=== PATIENT | female | born 1980 | race Caucasian/White ===

== ENCOUNTER → 2016-08-15 | Outpatient (CLI) | payer OTHER ==
[~2016-08-15] MED LIST: PRENTAB26 PO
[2016-08-15 16:26] LABS: HEMATOCRIT 35.2 % (37-47)
[2016-08-15 17:51] LABS: URINE APPEARANCE CLEAR (CLEAR); URINE BILIRUBIN NEG (NEG); URINE COLOR YELLOW; URINE NITRITE NEG (NEG); URINE PH 7.5 (4.5-7.5); URINE SPECIFIC GRAVITY 1.004 (1.000-1.030); UROBILINOGEN NEG (NEG)
[2016-08-15 17:52] LABS: MANUAL MICROSCOPIC REQUIRED? NO; REVIEW REQ? NO
[2016-08-15 18:40] LABS: GTGD 50 Grams
== END | disposition home or self-care (01) ==
LOC: C.LAB1850 15:31
PROVIDERS: ATTEND Obstetrics & Gynecology
DX: O09.03 Supervision of pregnancy with history of infertility, third trimester (principal); Z3A.00 Weeks of gestation of pregnancy not specified

== ENCOUNTER → 2016-08-18 | Outpatient (CLI) | payer OTHER ==
--- NOTE | 2016-08-18 15:01 | DIAGNOSTIC IMAGING REPORT ---
LEFT FOOT MIN 3 VIEWS ROUTINE CLINICAL HISTORY: L FOOT INJURY trauma. Pain. COMPARISON: None. DISCUSSION: The bones and joint spaces appear intact. There is no evidence of fracture, dislocation or bony disease. There is no evidence for soft tissue swelling. IMPRESSION: Negative study. Electronically signed by: Julio C Patel M.D. 08/18/2016 3:00 PM Dictated Date/Time: 08/18/2016 2:59 PM
--- NOTE | 2016-08-18 15:03 | DIAGNOSTIC IMAGING REPORT ---
LEFT ANKLE MIN 3 VIEWS ROUTINE CLINICAL HISTORY: L FOOT INJURY trauma COMPARISON: None. DISCUSSION: Tiny cortical avulsion tip distal fibula. Mild lateral soft tissue edema. All remaining osseous structures are unremarkable. Subtalar joint is intact. IMPRESSION: Tiny cortical avulsion tip distal fibula. Electronically signed by: Julio C Patel M.D. 08/18/2016 3:01 PM Dictated Date/Time: 08/18/2016 3:00 PM
== END | disposition home or self-care (01) ==
LOC: C.RAD 14:34
PROVIDERS: ATTEND Family Medicine
DX: S99.912A Unspecified injury of left ankle, initial encounter (principal); X58.XXXA Exposure to other specified factors, initial encounter

== ENCOUNTER → 2016-10-10 | Outpatient (CLI) | payer OTHER | END | disposition home or self-care (01) | LOC: C.LABSPEC 17:33 | PROVIDERS: ATTEND Obstetrics & Gynecology | DX: O09.03 Supervision of pregnancy with history of infertility, third trimester (principal) ==

== ENCOUNTER 2016-11-05 02:28 | Inpatient (IN) | payer OTHER ==
[~2016-11-05] VITALS: Ht 180.3 cm; Wt 84.1 kg
[2016-11-05] MEDS ORDERED: LACTATED RINGER'S 1000ML 1,000 ML IV SCH (03:15)
[2016-11-05] MEDS ORDERED: LACTATED RINGER'S 1000ML 1,000 ML IV PRN (03:15)
[2016-11-05 03:47] LABS: HEMATOCRIT 37.6 % (37-47); MEAN CELL VOLUME 93.3 fL (80-100); MEAN CORPUSCULAR HEMOGLOBIN 31.3 pg (25-34); MEAN CORPUSCULAR HGB CONC 33.5 g/dl (32-36); MEAN PLATELET VOLUME 10.2 fL (7.4-10.4); PLATELET COUNT 202 K/uL (130-400); RED BLOOD COUNT 4.03 M/uL (4.2-5.4)
[2016-11-05] MEDS ORDERED: PRENTAB26 PO (04:01)
[2016-11-05 04:06] VITALS: Ht 180.3 cm; Wt 84.1 kg
[2016-11-05] MEDS ORDERED: FENTANYL CITRATE INJ 50 MCG/1 ML 2 ML VIAL ONE (04:18)
[2016-11-05] MEDS ORDERED: BUPIVACAINE 0.25% 30 ML VIAL ONE (04:18)
[2016-11-05] MEDS ORDERED: EpHEDrine SULFATE INJ 50 MG/ML AMP ONE (04:18)
[2016-11-05] MEDS ORDERED: FENTANYL 2MCG/ML ROPIV 1.25MG/ML 100ML BAG EPI ONE (04:19)
[2016-11-05] MEDS ORDERED: NALOXONE HCL INJ 1 MG in SODIUM CHLORIDE 0.9% 1000ML 1,000 ML IV PRN (05:41)
[2016-11-05] MEDS ORDERED: LACTATED RINGER'S 1000ML 500 ML IV PRN ×2 (05:41→06:27)
[2016-11-05] MEDS ORDERED: ONDANSETRON INJ 2 MG/ML 2 ML VIAL IV PRN (05:45)
[2016-11-05] MEDS ORDERED: FENTANYL 2MCG/ML ROPIV 1.25MG/ML 100ML BAG EPI PRN (05:45)
[2016-11-05] MEDS ORDERED: PROMETHAZINE HCL INJ 6.25 MG in SODIUM CHLORIDE 0.9% 50ML 50 ML IV PRN (05:45)
[2016-11-05] MEDS ORDERED: NALBUPHINE HCL INJ 10 MG/ML AMP IV PRN (05:45)
[2016-11-05] MEDS ORDERED: EpHEDrine SULFATE INJ 50 MG/ML AMP IV PRN (05:45)
[2016-11-05] MEDS ORDERED: DiphenhydrAMINE HCL 50 MG/ML VIAL IV PRN (05:45)
[2016-11-05] MEDS ORDERED: NALOXONE HCL INJ 0.4 MG/1 ML VIAL/CARP IV PRN (05:45)
[2016-11-05] MEDS ORDERED: OXYTOCIN 30 UNITS/500ML NSS IV PRN ×2 (06:30→10:00)
[2016-11-05] MEDS ORDERED: LANOLIN OINT EXT PRN ×2 (10:00)
[2016-11-05] MEDS ORDERED: HYDROCORTISONE ACETATE 25 MG SUPP PR PRN (10:00)
[2016-11-05] MEDS ORDERED: OXYCODONE/ACETAMINOPHEN 5-325 TAB PO PRN (10:00)
[2016-11-05] MEDS ORDERED: SUPERCREAM 0.870 % 15GM JAR EXT PRN (10:00)
[2016-11-05] MEDS ORDERED: BENZOCAINE 20% AER SPR 82.5 GM CAN EXT PRN (10:00)
[2016-11-05] MEDS: IBUPROFEN 600 MG TAB PO PRN ×3 (11:03→23:41)
--- NOTE | 2016-11-05 11:28 | Anesthesia Procedure Note ---
Anesthesia Epidural Removal Nt Date & Time November 05, 2016 at 11:28 Vital Signs Pain Intensity: 5.0 Notes Mental Status: alert / awake / arousable, participated in evaluation Nausea / Vomiting: adequately controlled Pain: adequately controlled Airway Patency, RR, SpO2: stable & adequate BP & HR: stable & adequate Hydration State: stable & adequate Neuraxial Anesthesia: was administered, sensory block is resolving Anesthetic Complications: no major complications apparent, pt satisfied with anesthetic care Epidural: removed without complications, with tip intact
--- NOTE | 2016-11-05 12:51 | DELIVERY SUMMARY ---
DATE OF OPERATION: 11/05/2016 DELIVERING SURGEON: Dr. Chaves. PRE-DELIVERY DIAGNOSES: 1. 36-year-old at 40 weeks and 4 days. 2. Spontaneous rupture of membranes. 3. Spontaneous labor. POST-DELIVERY DIAGNOSES: Same. ANESTHESIA: Epidural. ESTIMATED BLOOD LOSS: 200 mL. FINDINGS: Viable male with apgars 8 and 9, nuchal cord x1. No perineal laceration. DESCRIPTION OF DELIVERY: The patient had presented overnight in spontaneous labor with spontaneous rupture of membranes at home. She was given and epidural after arrival and walking the hallways. Pitocin was then started for protracted active phase. The patient then progressed to complete and felt pressure and began to push. She then spontaneously vaginally delivered a viable male with apgars 8 and 9 from a left occiput anterior position. Nuchal cord x1 was noted and easily reduced. The head delivered followed by the anterior shoulder followed by the posterior shoulder followed by the body. The baby was placed on mother's abdomen and a spontaneous cry was heard. Delayed cord clamping was performed and the cord was doubly clamped and cut after one minute of life and a segment was retained in the event we needed cord gases. Cord blood was obtained. The placenta was then delivered spontaneously intact with a 3-vessel cord. Meconium was noted in the amniotic fluid at time of delivery which had not been noticed previously during labor. The uterus became firm. Pitocin was given. The uterus and vagina were swept of all clots and debris. The cervix, vagina, and perineum were inspected and no lacerations were noted. The patient and baby tolerated the delivery well. Sponge and instrument counts were correct x2 at the conclusion of the delivery and the patient and baby recovered in the room. I attest to the content of the Intraoperative Record and any orders documented therein. Any exceptio ns are noted below.
[2016-11-05 13:00] VITALS: BP 123/72; PULSE 95
[2016-11-05 16:00] VITALS: BP 120/72; PULSE 82; TEMP 36.5; O2SAT 98
[2016-11-05 20:20] VITALS: BP 131/87; PULSE 71; TEMP 36.4
[2016-11-05] MEDS: DOCUSATE SODIUM 100 MG CAP PO SCH (20:35)
[2016-11-05 23:30] VITALS: BP 123/79; PULSE 62; TEMP 36.7
[2016-11-06 04:35] VITALS: BP 106/70; PULSE 69; TEMP 36.5
[2016-11-06] MEDS: IBUPROFEN 600 MG TAB PO PRN ×3 (06:32→19:27)
--- NOTE | 2016-11-06 07:28 | Progress Note ---
Subjective November 06, 2016. Subjective conversation w/ patient Ambulation: ambulating normally Voiding: no voiding problems Passing Gas: Yes Diet Tolerance: Regular Diet Lochia: Moderate Feeding Type: Breast Feeding Review of Systems Constitutional: No problem reported Respiratory: No problem reported Cardiac: No problem reported Breast: No problem reported Abdomen: No problem reported Female : No problem reported Objective Vital Signs Date Time Temp Pulse Resp B/P Pulse Ox O2 Delivery O2 Flow Rate FiO2 11/06/16 04:35 36.5 69 16 106/70 Room Air 11/05/16 23:30 Room Air 11/05/16 23:30 36.7 62 16 123/79 Room Air 11/05/16 20:20 36.4 71 16 131/87 Room Air 11/05/16 16:40 Room Air 11/05/16 16:00 36.5 82 16 120/72 98 Room Air 11/05/16 13:00 Room Air 11/05/16 13:00 95 18 123/72 Room Air Physical Exam General Appearance: WELL-APPEARING, NO APPARENT DISTRESS Respiratory/Chest: no respiratory distress Cardiovascular: regular rate, rhythm Abdomen: non tender, soft Fundus: Firm Extremities: normal inspection Laboratory Results Last 24 Hours Test 11/06/16 04:44 Assessment and Plan Post- Day#: 1 Continue Routine Care: PPD#1. Doing well. Routine care.
[2016-11-06 07:55] VITALS: BP 121/85; PULSE 66; TEMP 36.7; O2SAT 100
[2016-11-06] MEDS: DOCUSATE SODIUM 100 MG CAP PO SCH ×2 (08:11→19:26)
[2016-11-06 08:34] LABS: HEMATOCRIT 34.6 % (37-47)
[2016-11-06 15:45] VITALS: BP 111/64; PULSE 74; TEMP 36.8
[2016-11-06] MEDS ORDERED: BISACODYL 5 MG TABEC PO SCH (20:00)
[2016-11-06 23:45] VITALS: BP 110/73; PULSE 66; TEMP 36.5
[2016-11-07] MEDS: IBUPROFEN 600 MG TAB PO PRN (06:13)
--- NOTE | 2016-11-07 06:34 | Progress Note ---
Subjective November 07, 2016. Subjective conversation w/ patient, physical exam Ambulation: ambulating normally Voiding: no voiding problems Passing Gas: Yes Diet Tolerance: Regular Diet Lochia: Small Feeding Type: Breast Feeding Pain: denies pain Comment: Patient was seen at the bedside. No acute event overnight. Review of Systems Constitutional: No fever Respiratory: No cough, No shortness of breath Cardiac: No chest pain Breast: No breast lump Abdomen: No nausea, No pain, No vomiting Female : No dysuria, No urinary frequency Denies headache Objective Vital Signs Date Time Temp Pulse Resp B/P Pulse Ox O2 Delivery O2 Flow Rate FiO2 11/06/16 23:45 36.5 66 16 110/73 Room Air 11/06/16 23:45 Room Air 11/06/16 15:45 36.8 74 18 111/64 Room Air 11/06/16 15:45 Room Air 11/06/16 07:55 Room Air 11/06/16 07:55 36.7 66 20 121/85 100 Room Air Physical Exam General Appearance: WELL-APPEARING, WD/WN, NO APPARENT DISTRESS Respiratory/Chest: chest non-tender, lungs clear, normal breath sounds, no respiratory distress Cardiovascular: regular rate, rhythm Abdomen: normal bowel sounds, non tender, soft Fundus: Firm, Relation to Umbilicus (about 2cm below U) Extremities: non-tender, no pedal edema, no calf tenderness Laboratory Results Last 24 Hours Test 11/06/16 08:24 Hemoglobin 11.1 g/dL Hematocrit 34.6 % Medications Current Inpatient Medications Medications (Trade) Dose Ordered Sig/Liv Route Start Time Stop Time Status Last Admin Dose Admin Lactated Ringer's (Lr 1000ml) 1,000 ml @ 999 mls/hr Q1H1M PRN IV 11/05/16 03:15 12/05/16 03:14 11/05/16 04:00 999 MLS/HR Oxytocin 30 units 30 units UD PRN IV 11/05/16 06:30 12/05/16 06:29 11/05/16 06:58 30 UNITS Lactated Ringer's (Lr 1000ml) 500 ml @ 999 mls/hr Q31M PRN IV 11/05/16 06:27 12/05/16 06:26 Oxytocin (Pitocin IV) 30 units UD PRN IV 11/05/16 10:00 12/05/16 09:59 Benzocaine (Dermoplast Aero Spr) 1 appln PRN PRN EXT 11/05/16 10:00 12/05/16 09:59 11/05/16 14:33 82.5 APPLN Cocaine HCl (Supercream 0.870% Cr) BID PRN EXT 11/05/16 10:00 11/19/16 09:59 11/07/16 06:14 0.5 GM Hydrocortisone Acetate (Anusol Hc Supp) 25 mg BID PRN VA 11/05/16 10:00 12/05/16 09:59 Lanolin (Lanolin Oint) PRN PRN EXT 11/05/16 10:00 12/05/16 09:59 Ibuprofen (Motrin Tab) 600 mg Q4H PRN PO 11/05/16 10:00 12/05/16 09:59 11/07/16 06:13 600 MG Oxycodone/ Acetaminophen (Percocet 5-325mg Tab) 1 tab Q4H PRN PO 11/05/16 10:00 11/19/16 09:59 Docusate Sodium (coLACE CAP) 100 mg BID PO 11/05/16 20:00 12/05/16 19:59 11/06/16 19:26 100 MG Assessment and Plan Post- Day#: 2 Continue Routine Care: A/P: This is a 36 y/o female, , s/p normal vaginal delivery. She is ambulating and clinically stable to discharge. - Vital signs are reviewed and WNL (Tmax 36.8 ) - Last Hgb 11.1 - Blood type O+, GBS neg, Rubella Immune - No signs of depression. - Routine care - Discussed resting, feeding, pain control, mastitis, control, follow up in 6 weeks and reasons to call sooner, if necessary. - Continue with pain medication as needed, and continue vitamins. - Encourage breast feeding and educate about breast feeding - Patient understands and keen for home. - Plan to discharge home Resident Physician Supervision Note: I interviewed and examined the patient. Discussed with Dr. Meza and agree with findings and plan as documented in the note. Any exceptions or clarifications are listed here: [None] Documented By: Abbey Avila
--- NOTE | 2016-11-07 06:34 | Discharge Instructions ---
Discharge Instructions Date of Service November 06, 2016. Admission Reason for Admission: LABOR Discharge Discharge Diagnosis / Problem: s/p vaginal delivery Discharge Goals Goal(s): Routine recovery after delivery Medications Continue Dispensed Medications: supercream, dermaplast, tucks, lansinoh Activity Recommendations Activity Limitations: as noted below . Instructions / Follow-Up Instructions / Follow-Up ACTIVITY RECOMMENDATIONS: * Gradual return to full activity over the next 2-3 weeks. * No lifting - nothing heavier than baby over the next 2-3 weeks. * Do not engage in vigorous exercise, sexual activity or sports until cleared by your physician. * Do not drive or operate any motorized equipment until cleared by your physician. * You may shower/bathe daily. MEDICATIONS: For discomfort or pain, you may use Acetaminophen (Tylenol), Ibuprofen (Advil), or Naproxen (Aleve) following the package directions. For constipation you may use Colace following the package directions. BREAST CARE: If you are not breast feeding: * Wear a supportive bra 24 hours a day for one to two weeks. * Avoid stimulating your breasts and nipples as much as possible during the first few weeks after delivery. * When taking a shower, have the warm water hit your back, not breasts. * When your breasts feel full, apply ice packs. Usually three to four times a day helps ease the discomfort. * Take a mild pain medication (Tylenol / Motrin) when you are uncomfortable. If breast feeding: * Use breast milk to lubricate nipples. Lansinoh cream may be used for sore nipples. You do not need to remove cream prior to breast feeding. If using a different brand of cream, check the label for directions regarding removal of cream prior to nursing. * Wear a supportive bra. * If having problems with breasts or breast feeding, call a employment consultant or your health care provider. EPISIOTOMY CARE: After delivery, if you have an episiotomy (stitches), the following steps will ease discomfort and aid healing. * For the first 24 hours after delivery, place ice packs next to your episiotomy to help reduce swelling. * After the first 24 hour-period, sitz baths, either portable or in the tub, are suggested. A shower with a shower arm sprayed over the episiotomy may be comforting. * Oliva care should be done after each voiding and bowel movement. Squirt warm water from a plastic bottle over the perineum (region of the body between the anus and urinary opening) and pat dry. * Use Dermoplast to ease discomfort. Shake container. [place] directly over the episiotomy. Place a Tucks on a clean sanitary pad next to your episiotomy. SPECIAL CARE INSTRUCTIONS: When you are discharged from the hospital, it is important for you to follow the instructions listed below: * During the first week at home, you should be able to care for yourself and your baby. In addition, the usual light household activities are encouraged. * Limit your activities to the way you feel. Do not try to clean the house or move furniture. Be sensible. * If you actively engage in sports and have done so up until the time of your delivery, you may resume these activities as soon as you feel able. This may take up to one month or even longer. Use good judgment. * Continue to take your vitamins for at least six weeks after the of your baby. * Your diet need not be limited unless you were on a special diet before your delivery. Breast-feeding mothers need around 2500 calories per day and at least 64-80 ounces of fluid per day (8 to 10 glasses). * You should eat foods from the four major food groups. Crash diets or fad diets are to be avoided. Eating lean meats, fresh fruits and vegetables, low-fat dairy products, high fiber foods and a regular exercise program, will help you get back to your pre- weight without putting your health at risk. * Constipation is sometimes a problem after delivery. Take a mild laxative as needed. If breast feeding, Milk of Magnesia is acceptable to use. You may use a suppository or Fleets enema if no episiotomy. * A daily shower or tub bath is suggested. Be sure to thoroughly and gently dry the perineum. * A bloody vaginal discharge will usually continue until around four weeks post . A small amount of bleeding may continue for as long as six weeks. Vaginal discharge changes from the bright red bleeding after delivery to pink then brownish and finally yellowish-pink before becoming white and disappearing. * Bleeding may increase with activity. Your first period may come in 4-8 weeks. If you are breast feeding, your period may be delayed even longer. * [place] (sex) can begin whenever both you and your partner feel comfortable and do not have any form of genital infection. It is recommended that you wait at least six weeks for internal and external healing to occur. If you have questions, please talk to your health care practitioner. A condom should be used to prevent infection and . * Foreplay, gentle intercourse and lubrication is very important the first several times to prevent pain. A water-based lubricant such as K-Y jelly or Astroglide may be used. * If you have RH negative blood and your baby is RH positive, you will receive RHOGAM by injection prior to discharge. The nurse will give you a card to keep with you that has the date and place that you received RHOGAM after delivery. * During your care, you had a Rubella screen done to check for the presence of rubella antibodies in your blood. If your test was negative, you will receive a Rubella vaccine prior to discharge. This vaccine may cause a fever, soreness at the injection site and flu-like symptoms. If these symptoms persist, notify your health care practitioner. is not advised for one month after a Rubella vaccine. * Verbalizes understanding of car seat law as reviewed with patient nursing. * Car Seat hand-out given and reviewed with patient by nursing. * Shaken baby information reviewed with patient by nursing. Call you doctor if: * Heavy bleeding (saturating several pads an hour) or passing clots the size of your fist. * A fever >101 degrees F (38.3 degrees C) on two occasions four hours apart and /or chills. * Unusual pain in the pelvic or vaginal areas. * "Baby Blues" lasting longer than two weeks. If you have any questions or concerns, call your health care practitioner at . FOLLOW UP VISIT: * Please call the office at to schedule a 6 week examination. It is important you keep this appointment. It is important for you to make arrangements for either yearly or twice yearly check-ups thereafter. Current Hospital Diet Patient's current hospital diet: Regular OB Diet Discharge Diet Recommended Diet: Regular Diet Pending Studies Studies pending at discharge: no Medical Emergencies . Who to Call and When: Medical Emergencies: If at any time you feel your situation is an emergency, please call 911 immediately. . Non-Emergent Contact Non-Emergency issues call your: [employer] Call Non-Emergent contact if: you have a fever, temperature is above 101 . . "Provider Documentation" section prepared by Poly Meza. . VTE Core Measure Inpt VTE Proph given/why not?: Treatment not indicated
[2016-11-07 08:00] VITALS: BP 125/84; PULSE 65; TEMP 36.5
[2016-11-07] MEDS: DOCUSATE SODIUM 100 MG CAP PO SCH (08:06)
[2016-11-07 11:00] VITALS: BP_DIAS 84; PULSE 65; TEMP 36.5
== END 2016-11-07 11:30 | disposition home or self-care (01) | DRG 775 ==
LOC: C.LD 02:28 → C.OPB 02:28 → C.LD 03:16 → C.OBG 13:43
PROVIDERS: ADMIT Obstetrics & Gynecology; ATTEND Obstetrics & Gynecology
PROC: 10E0XZZ Delivery of Products of Conception, External Approach (ICD-10-PCS; principal; 2016-11-05)
DX: O48.0 Post-term pregnancy (principal); O63.0 Prolonged first stage (of labor); O69.81X0 Labor and delivery complicated by cord around neck, without compression, not applicable or unspecified; O77.0 Labor and delivery complicated by meconium in amniotic fluid; Z37.0 Single live birth; Z3A.40 40 weeks gestation of pregnancy